=== PATIENT | male | born 1980 | race Caucasian/White ===

== ENCOUNTER → 2023-11-20 16:47 | Outpatient (CLI) | payer OTHER, SELFPAY ==
--- NOTE | 2023-11-20 16:49 | DI.MRI.S_ITS ---
PROCEDURE: MR KNEE LT WO CON INDICATIONS: RIGHT KNEE PAIN TECHNIQUE: Noncontrast sagittal PD fast spin echo and T2 fast spin echo with fat saturation, sagittal 3-D FLASH with fat saturation; coronal T1 spin echo and PD fast spin echo with fat saturation, and axial PD fast spin echo with fat saturation through the knee. COMPARISON: None. FINDINGS: Image quality: Excellent. Anterior cruciate ligament: Intact. Posterior cruciate ligament: Thickening of the posterior cruciate ligament is seen with suspected low-grade intrasubstance tearing. Medial collateral ligament: Intact. Lateral collateral ligament: Intact. Medial meniscus: There is radial tearing at the posterior root attachment of the medial meniscus with minimal extrusion of the meniscal body. Lateral meniscus: Increased signal is seen at the inner margin of the lateral meniscal body that may represent intrasubstance degeneration or meniscal contusion versus subtle oblique tearing. Medial and lateral tendons: The semimembranosus tendon insertions appear intact. Visualized portions of the pes anserinus tendons appear normal. The popliteus tendon is intact. Iliotibial band appears normal. Anterior structures: The quadriceps and patellar tendons appear intact. No patellar subluxation. No femoral trochlear dysplasia or ventral trochlear prominence. No edema in the infrapatellar fat pad. Bones and cartilage: Minimally displaced intra-articular fracture of the posterior oral medial aspect of the medial tibial plateau. Fracture fragment measures 3.6 x 1.6 x 0.9 cm. There is up to 2 mm step-off at the posterior medial tibial plateau articular surface. Osseous contusion and possible incomplete fracture is also seen at the anterior portion of the central tibial plateau. Medial femorotibial cartilage: Full-thickness cartilage fissuring is seen adjacent to the fracture site with mild articular surface step-off posteriorly. Full-thickness cartilage loss is seen anterior to the fracture in the central weight-bearing portion of the medial tibial plateau. Lateral femorotibial cartilage: Partial-thickness cartilage irregularity is seen in the far posterior nonweightbearing portion of the lateral femoral condyle. Patellofemoral cartilage: Focal moderate grade partial-thickness cartilage defect at the median ridge of the patella measuring 7 x 5 mm. Soft tissues: Moderate to large joint effusion. Suspected chondral loose body anterior to the lateral tibial plateau measuring 10 x 2 x 1 mm. Small medial popliteal cyst with mild adjacent edema that may indicate cyst rupture. The musculature surrounding the knee is normal in bulk. Pericapsular ganglion cyst is seen posterior intercondylar notch measuring up to 9 mm. Nonspecific subcutaneous edema is seen surrounding the knee. IMPRESSION: 1. Minimally displaced intra-articular fracture at the posterior medial aspect of the medial tibial plateau. Osseous contusion versus nondisplaced incomplete fracture is also seen at the anterior portion of the central tibial plateau. 2. Complete radial tearing at the posterior root attachment of the medial meniscus with minimal meniscal extrusion. 3. Intrasubstance signal in the lateral meniscus may be secondary to intrasubstance degeneration, meniscal contusion, or possibly a subtle oblique tear. 4. Grade 2 sprain of the posterior cruciate ligament. 5. Full-thickness cartilage loss is seen in the medial tibial plateau just anterior to the fracture site. Grade 2 chondromalacia in the posterior lateral femoral condyle. Focal grade 2-3 cartilage defect at the median ridge of the patella in the anterior compartment. 6. Moderate to large joint effusion. Chondral loose body is seen at the anterior lateral aspect of the knee measuring up to 10 mm. Small medial popliteal cyst with signs of possible cyst rupture. Approved by: Simeon Armando M.D. on 11/21/2023 at 14:12
== END ==
LOC: MRI 16:48
PROVIDERS: Referring Provider Orthopaedic Surgery Foot and Ankle Surgery; Visit Provider Orthopaedic Surgery Foot and Ankle Surgery
DX: S82.145A Nondisplaced bicondylar fracture of left tibia, initial encounter for closed fracture (principal); S83.242A Other tear of medial meniscus, current injury, left knee, initial encounter; S83.522A Sprain of posterior cruciate ligament of left knee, initial encounter; M94.262 Chondromalacia, left knee; M71.22 Synovial cyst of popliteal space [Baker], left knee; M23.42 Loose body in knee, left knee; M25.462 Effusion, left knee; M23.601 Other spontaneous disruption of unspecified ligament of right knee
CPT/HCPCS: 73721

== ENCOUNTER 2024-04-01 08:23 | Day surgery (SDC) | payer OTHER, SELFPAY ==
[2024-03-30 11:53] VITALS: BMI 33.7
[2024-04-01] VITALS (9 sets, daily range): BP systolic 94–160; BP diastolic 65–100; PULSE 72–86; RESP 10–25; TEMP 36.2–36.8; O2SAT 94–99; BMI 33.7
--- NOTE | 2024-04-01 08:50 | P.HP_ITS ---
History of Present Illness History of Present Illness Date Patient Seen: 04/01/24 Time Patient Seen: 08:50 Chief complaint: Left Arthroscopy Knee Narrative: Patient presents preoperatively for left knee PCL and meniscus rupture has not had any changes in his symptoms since I last saw him. Still experiencing instability Meds Home Medications and Allergies Home Medications Medication Instructions Recorded Confirmed Type cetirizine 10 mg tablet 10 mg PO DAILY 04/01/24 04/01/24 History lisinopril 10 mg tablet 10 mg PO DAILY 04/01/24 04/01/24 History Allergies Allergy/AdvReac Type Severity Reaction Status Date / Time No Known Drug Allergies Allergy Verified 04/01/24 08:38 Review of Systems Review of Systems ROS: Yes All systems reviewed with the patient and are negative except as otherwise documented Exam Narrative Exam Narrative: HEENT: Head atraumatic eyes anicteric moist mucous membranes Cardiovascular: Palpable peripheral pulses extremities are warm and well perfused Respiratory: Breathing comfortably on room air Psychiatric: Appropriate mood and affect Neuro: No acute deficits Musculoskeletal: Exam of left knee demonstrates positive posterior drawer sign Assessment & Plan Assessment & Plan narrative: 43-year-old male with 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 Risks and benefits of surgery were discussed again including the risk of infection, damage to internal structures, bleeding, nerve injury, instability, need for revision surgery, blood clots, anesthesia and . No guarantees were made regarding outcomes. Patient expressed u nderstanding and accepted these risks and wished to go forward with surgery and consent was signed. Time-Based Coding :: [TOTAL MINUTES] spent with patient and on the chart (including review of chart, obtaining history, exam, reviewing outside data, placing orders, documenting exam and treatment plan, and counseling patient) on [DATE].
[2024-04-01] MEDS: LACTATED RINGERS 1,000 ML 84 ML IV ×2 (08:52→11:34)
[2024-04-01] MEDS: CEFAZOLIN 2 GM/100 ML PREMIX 100 ML IV (09:54)
[2024-04-01] MEDS: TRANEXAMIC ACID 1,000 MG VIAL 1000 MG INJ (09:57)
[2024-04-01] MEDS: ACETAMINOPHEN IV 1,000 MG/100 ML VIAL 400 MG IV (10:00)
--- NOTE | 2024-04-01 10:21 | SUR.OPER ---
Supine on padded OR bed, head on pillow, arms secured on padded arm boards at <90 degrees abduction, legs uncrossed, safety belt at thigh, tape over blanket over non-operative leg. Padded lateral brace at operative thigh.
[2024-04-01] MEDS: BUPIVACAINE 0.25% (PF) 30 ML, EPINEPHrine 0.15 MG INJ (10:37)
--- NOTE | 2024-04-01 12:55 | SUR.PHASEI ---
Block start time [1250] . Monitoring initiated and maintained throughout procedure. Oxygen and medications given per anesthesiologist instructions. Patient remained stable throughout procedure, no adverse reactions noted. Block end time [1254].
--- NOTE | 2024-04-01 15:07 | PM.OP.1 ---
Operative Date/Time/Diagnoses Date of procedure: 04/01/24 Time of procedure: 15:09 Pre-op diagnosis: Left the ACL rupture Post-op diagnosis: same Procedure & Clinicians Procedure: Left PCL repair, medial compartment chondroplasty, extensive debridement with synovectomy multiple compartments Same procedure as scheduled: Yes Indications: This is a 43-year-old male with a complex PCL injury noted on MRI preoperatively. He has tried nonoperative management extensively with physical therapy however he has failed and still has instability. Surgeon: Sean Rosario [employer] Processor: Rickie Carrasco Anesthesia Type: General Operative Notes Findings: Findings: Exam under anesthesia: Positive posterior drawer, 1A Danielle's Patellofemoral joint: Normal articulation and cartilage Medial and lateral gutters: No loose bodies noted Medial compartment: Medial meniscus is intact, however there is obvious damage to the cartilage right at the undersurface of the meniscus Intercondylar notch: Incompetent PCL with some synovial attachment still to the medial wall, intact ACL Lateral compartment: Lateral meniscus intact, lateral tibial plateau with normal cartilage, lateral femoral condyle also was normal cartilage Closure Type: primary Specimen(s): none sent Prosthetic devices, grafts, tissues, transplants, or devices: Implants: Arthrex tight rope button with button indoor landscape architect, SwiveLock x1, fiber tape Tums 1 Estimated Blood Loss (mL): 50 Blood products transfused: none Tourniquet time (min): 100 Procedure in detail: Description of operation: Patient was identified in the preoperative area. The correct knee was marked with my initials. The patient was then brought into the operating room. A surgical pause was confirmed in the correct site of surgery was again identified. The patient was given perioperative IV antibiotics followed by induction of general anesthesia. A tourniquet was applied to the upper thigh. The lower extremity was then prepped and draped in a standard sterile fashion. After exam under anesthesia revealed PCL insufficiency, the decision was made to proceed with PCL repair. The leg was exsanguinated with an Esmarch bandage and the tourniquet was inflated to 250 mm hg. I began with a anterolateral and anteromedial portal, after diagnostic arthroscopy demonstrated the above-noted findings There was a partial tear of the functional fibers of the posterior cruciate ligament rendering it insufficient. The tendon was captured using a fiber ring suture, a tunnel was drilled from outside in using a PCL guide in the sutures were then passed to the medial cortex of the femur and placed into a button. As a backup, a luggage tag was placed using a fiber tape into the PCL distal to the fiber ring sutures, this was then pulled into a separate SwiveLock superior in the notch. The tensioning was done at 90? with an anterior drawer. The arthroscope was reinserted. The PCL revealed excellent tension. There is no proud aspect of the SwiveLock. The knee was then suctioned dry. A knotl was tied over the button on the femoral side. Wounds were closed with 2-0 Vicryl and 3-0 Monocryl and the patient was placed into a hinged knee brace locked in extension. Assisting participation: This operation could not have been safely performed (without compromising the technical results or length of the procedure) without the assistance of a skilled surgical instruments inspector. The surgical instruments inspector was medically necessary for proper positioning, retraction and manipulation of instruments, proper exposure, graft prep, and manipulation of tissue. Complications: none Post-operative Condition: stable Disposition: PACU Plan for aftercare: Postop: Weight-bearing as tolerated with hinged knee brace locked in extension and with crutches for the 1st 2 weeks. Wear the brace locked in extension at night for the 1st 2 nights. Okay to unlock the brace when at rest otherwise. Aquacel dressing to remain on for 2 weeks. This will be removed in clinic as well as the underlying nacho. Okay to shower with soap and water running over top of the dressing. NOTE: If water gets underneath the dressing, please remove the dressing and replace with clean dry 4x4s.
== END 2024-04-01 13:37 | disposition home or self-care (01) ==
PROVIDERS: Referring Provider Orthopaedic Surgery; Visit Provider Orthopaedic Surgery
PROC: (CPT 29870; principal; 2024-04-01 10:30)
DX: S83.522A Sprain of posterior cruciate ligament of left knee, initial encounter (principal); S83.32XA Tear of articular cartilage of left knee, current, initial encounter; M65.88 Other synovitis and tenosynovitis, other site; G89.18 Other acute postprocedural pain
CPT/HCPCS: 29889; 64450; C1713; J0134; J0171; J0690; J1100; J1171; J1885; J2250; J2405; J2704; J3010